=== PATIENT | female | born 1995 | race Caucasian/White ===

== ENCOUNTER → 2018-04-25 14:59 | Outpatient (CLI) | payer OTHER, SELFPAY ==
[2018-05-01 08:59] LABS: HPV APTIMA, High Risk Negative (Negative)
== END ==
PROVIDERS: Visit Provider Obstetrics & Gynecology
DX: Z12.4 Encounter for screening for malignant neoplasm of cervix (principal)
CPT/HCPCS: 88175; G0145

== ENCOUNTER → 2019-07-01 15:16 | Outpatient (CLI) | payer OTHER, SELFPAY ==
[2019-07-01 20:03] LABS: Chlamydia Trachomatis by PCR Negative (Negative); Neisserai gonorrhoeae by PCR Negative (Negative); Probe Check PASS; Sample Adequacy Control PASS; Specimen Processing Control PASS
== END ==
PROVIDERS: Visit Provider Advanced Practice Midwife
DX: Z11.3 Encounter for screening for infections with a predominantly sexual mode of transmission (principal)
CPT/HCPCS: 87491; 87591

== ENCOUNTER → 2019-07-14 14:34 | Outpatient (CLI) | payer OTHER, SELFPAY ==
[2019-07-14 16:00] LABS: Absolute Lymphocyte Count 2.14 X10^3/uL (0.83-4.51); Absolute Neutrophil Count 9.3 X10^3/uL (2.0-7.7); Basophil# 0.05 X10^3/uL; Basophil% 0.4 % (0-1); Eosinophils% 0.8 % (0-5); Hematocrit 42.2 % (37-47); Lymphocyte # 2.14 X10^3/ul (4.0); Lymphocyte % 17.5 % (19-41); Mean Corp Hgb Conc 33.2 g/dL (32-36); Mean Corpuscular Hgb 28.8 pg (27.0-32.0); Mean Corpuscular Volume 86.8 fL (81-99); Mean Platelet Vol. 9.4 fl (6.2-12.0); Monocyte# 0.59 X10^3/uL; Monocyte% 4.8 % (0-10); NRBC Flagged by Analyzer 0 % (0-5); Neutrophil # 9.27 X10^3/uL (2.7-7.7); Neutrophil % 76.1 % (47-70); Platelet Count 252 K/mm3 (150-450); RBC Distribution Width CV 13.4 % (11.6-14.6); RBC Distribution Width SD 42.5 fl (35.1-43.9); Red Blood Count 4.86 M/mm3 (4.2-5.4); White Blood Count 12.2 K/mm3 (4.4-11.0)
[2019-07-14 16:06] LABS: Amphetamine Urine VISTA NEGATIVE (<1000 ng/mL); Barbiturate Urine VISTA NEGATIVE (< 200 ng/mL); Benzodiazepine Urine VISTA NEGATIVE (< 200 ng/mL); Cocaine Urine VISTA NEGATIVE (< 300 ng/mL); Color, Urine Yellow (Yellow); Ecstacy Urine VISTA NEGATIVE (< 500 ng/mL); Glucose, Dipstick Normal (Normal); Ketone-Dipstick Negative (Negative); Leukocyte Esterase-Dipstick Negative /ul (Negative); Methadone Urine VISTA NEGATIVE (< 300 ng/mL); Nitrite-Dipstick Negative (Negative); Occult Blood-Urine Negative /ul (Negative); PCP Urine VISTA NEGATIVE (< 25 ng/mL); Protein-Dipstick Negative (Negative); THC Urine VISTA NEGATIVE (< 50 ng/mL); Urine Bilirubin Dipstick Negative (Negative); Urine Clarity Clear (Clear); Urine Urobilinogen Normal (Normal); Vista UDS pH Range 7
[2019-07-14 16:29] LABS: Thyroid Stim Hormone (TSH) 1.58 uIU/mL (0.358-3.74)
[2019-07-14 17:10] LABS: HIV - WCH Non-Reactive (Nonreactive); Hepatitis B Surface Antigen Non-Reactive (Nonreactive); Hepatitis C Antibody Non-Reactive (Nonreactive); Rubella IgG > 500.0 IU/mL
[2019-07-15 05:11] LABS: Prenatal RPR NONREACTIVE (NONREACTIVE)
== END ==
PROVIDERS: Visit Provider Obstetrics & Gynecology
DX: Z34.81 Encounter for supervision of other normal pregnancy, first trimester (principal)
CPT/HCPCS: 36415; 80307; 81002; 84443; 85025; 86703; 86762; 86803; 87340

== ENCOUNTER → 2019-11-26 | Outpatient (CLI) | payer OTHER, SELFPAY ==
[2019-11-26 17:46] LABS: Hematocrit 37.9 % (37-47); Hemoglobin 12.3 g/dL (12.0-15.0); Mean Corp Hgb Conc 32.5 g/dL (32-36); Mean Corpuscular Hgb 29.3 pg (27.0-32.0); Mean Corpuscular Volume 90.2 fL (81-99); Mean Platelet Vol. 9.3 fl (6.2-12.0); Platelet Count 208 K/mm3 (150-450); RBC Distribution Width CV 14.4 % (11.6-14.6); RBC Distribution Width SD 47.5 fl (35.1-43.9)
[2019-11-26 17:54] LABS: Glucose Challenge Gest 1H 50g 135 mg/dL (70-140)
== END | disposition home or self-care (01) ==
PROVIDERS: Referring Provider Obstetrics & Gynecology; Visit Provider Obstetrics & Gynecology
DX: Z34.83 Encounter for supervision of other normal pregnancy, third trimester (principal)
CPT/HCPCS: 82950; 85027

== ENCOUNTER → 2020-01-20 | Outpatient (CLI) | payer OTHER, SELFPAY | END | disposition home or self-care (01) | PROVIDERS: Referring Provider Obstetrics & Gynecology; Visit Provider Obstetrics & Gynecology | DX: Z36.85 Encounter for antenatal screening for Streptococcus B (principal) | CPT/HCPCS: 87081 ==

== ENCOUNTER → 2020-02-02 | Outpatient (CLI) | payer OTHER, SELFPAY | END | disposition home or self-care (01) | LOC: LABSPEC 12:22 | PROVIDERS: PCP Nurse Practitioner Family; Referring Provider Obstetrics & Gynecology; Visit Provider Obstetrics & Gynecology | DX: Z11.59 Encounter for screening for other viral diseases (principal) | CPT/HCPCS: 87635; U0003 ==

== ENCOUNTER → 2020-02-15 17:58 | Outpatient (CLI) | payer OTHER, SELFPAY | PROVIDERS: PCP Nurse Practitioner Family; Referring Provider Obstetrics & Gynecology; Visit Provider Obstetrics & Gynecology | DX: Z34.83 Encounter for supervision of other normal pregnancy, third trimester (principal); Z11.59 Encounter for screening for other viral diseases | CPT/HCPCS: 87635; G2023; U0003 ==

== ENCOUNTER 2020-02-22 09:55 | Inpatient (IN) | payer OTHER, SELFPAY ==
[2020-02-22] VITALS (44 sets, daily range): BP systolic 87–127; BP diastolic 48–77; PULSE 86–141; TEMP 36.6–37.8; O2SAT 91–100; BMI 33.8
[2020-02-22] MEDS: Lactated Ringers 1,000 ML 30 ML IV (09:25)
[2020-02-22] MEDS: proMETHazine 25 MG/ML Syringe 12.5 MG IM (09:35)
[2020-02-22] MEDS: morphine 10 MG/ML Syringe IM (09:35)
--- NOTE | 2020-02-22 09:57 | PCM.HP.BLA ---
History and Physical Date of Admission: 02/22/20 [facility] [place] - HISTORY AND PHYSICAL (02/22/2020) Name: MYA COLIN History of This : This is a 24-year-old G1, P0 who presents at 40 weeks 6 days gestation in active labor. care has been uneventful. OB Physician: ARIANE [place]'s Physician: UNDECIDED ...................................................................... : 1995 Age: 24 Address: [address] [place] [address] Phone: ([phone] Insurance Carrier: Well [id number] Emergency Contact: CESILIA COLIN [phone] ...................................................................... Final PEREZ: 02/16/20 By Ultrasound: 9 weeks 0 days PARITY: (G-Total Pregnancies P-Fullterm,Premature,Induced AB,Spont AB, Ectopics, Multiple,Living) PEREZ CONFIRMATION: By LMP: 05/12/19 Initial Exam: 02/16/20 By First Ultrasound Exam: 02/18/20 Final PEREZ: 02/16/20 OB PROBLEM LIST: Declines AFP and CF. Enc OFFICE Childbirth and Classes. ALLERGIES: No Known Allergies MEDICATIONS: oseltamivir 75 mg capsule One pill by mouth twice a day for 5 days 28 mg iron-800 mcg tablet daily SOCIAL HISTORY: Smoking - Never Alcohol Use - drinks occasionally not while Diet - moderate, balanced diet, caffeine < 2 drinks per day and Water intake tries for 2-3 liters. Lifestyle - Exercise - regular and Enc to walk 20 min daily. Employer - [employer] Job Description - packaging Illicit Drug Use - denies use of street drugs Sexual Activity - Residence - lives with Place of - [place] Hours Worked - 40 hours per week Spouse-Sig Other Name - Cesilia Spouse-Sig Other Occupation - [place] [employer]. FT programmer developer Berny Franklin Spouse-Sig Other Phone No - [phone] PRIOR DELIVERY HISTORY DEL DATE GEST LAB WT LB WT OZ TYPE ANES LABOR TX ANTEPARTUM FLOW CHART VISIT GE RTC FU F F MT U U DATE WK MD WKS HT PN HR M SS BP ED WT MT GL D EF ST __ ____ ___ __ __ ___ __ __ __ ___ __ __ __ ___ __ Feb JMW 1 38 V + + 112/72 sl 194 - - S Feb CH + 120/70 sl 194 - - 25 Messi 38 CH 1 40 V + + 118/60 sl 191 ne ne ft 25 hi 18 Jan 37 CH 1 36 V + + 118/66 0 190 - - 10 Jan 36 CH 1 35 V + + 122/60 sl 187 - - 05 January 34 CH 2 34 V + + 112/64 sl 183 - - 22 December 32 CH 2 31 V + + 110/64 sl 179 - - 30 Dec 09 CH 2 + / 166 16 Dec 07 CH 2 26 V + + 118/66 0 166 - tr Oct 01 JMW 4 20 + ? 104/68 0 162 - 1+ 06 Sep 29 KW 2 + ? 108/58 0 158 - - 09 Aug 25 KW 4 + + 100/70 0 152 - - 03 Jul 20 ELB 4 - - U+ O 110/72 0 152 ANTEPARTUM NOTE(S): Feb 17 2020: Good FM, Reactive NST Feb 11 2020: feeling well. Cervix check. Feb 04 2020: Jan 28 2020: feeling well. Lots of questions about labor! Jan 20 2020: feeling well. GBS and LARC today. Jan 06 2020: Dec 23 2019: feeling well. Dec 10 2019: feeling well Nov 26 2019: Oct 01 2020: see note, US OK Sep 17 2020: Aug 20 2019: feeling well. Stressful last 2 weeks with loss of father. Jul 14 2019: having some dizziness and low appetite. COMPREHENSIVE ANTEPARTUM NOTE(S): Feb 17 2020: Mya is here for her NST at 40 w 1 d. She states that she is tired, but okay. She states that the baby is not as active this morning, but in general she has noted good FM. She denies spotting/LoF. Notes occasional mild cramping. NST/EEFM explained. Feb 04 2020: Mya is here for PNV. FM good. Medications and Hx reviewed. She had COVID-19 test on 02/02/2020. She refused induction at this time. No complaints or concerns voiced to me. LJW Feb 04 2020: Had class over the weekend. Question about when to come in. To call if 5-1-1 rule and can determine over the phone usually. Reports +FM. FHR 142. SVE today /high soft anterior. To return in 1 week for routine PNV and had covid test already done Saturday. - CH Jan 28 2020: Reports +FM. FHR 135. Reviewed negative GBS. Feeling well with no signs of labor. Has class scheduled this Saturday and is excited. Will bring her carseat in to that class. Discussed with her being smaller she will need the shoulder straps at the lowest level. Doesn't think she will go into labor for a few weeks, but doesn't want induced. Will fax covid test order over and she will think about getting it next week. To return in 1 week for routine PNV. - Jan 22 2020: H taken to OB. tkg Jan 20 2020: Reports +FM. FHR 132. Feeling well with no concerns. Declines SVE today. GBS swab collected. To return in 1 week. - Jan 06 2020: Good FM. Reporting slight edema BL ankles -- wearing Dr. Rossi's compression stockings which seem to help. [facility] Jan 06 2020: Got in for class on January 14. Reports +FM. FHR today 138. Feeling well. Will review plan next visit after taking class. Discussed GBS swab and collection next visit with SVE if she wishes. To return in 2 weeks for routine PNV> - December 22 2020: (f*) Here today for a routine 32w PNV. Reports +FM. FHR today 146. Feeling well with no concerns. Went back to work last Saturday. Discussed in 2 weeks can do in person or telehealth appt. She would like to come in person. Reviewing [employer] classes and if not having any before delivery can do N[place] course online. Reviewed signs of labor and when to call. - Dec 10 2019: Telehealth appt today due to Covid-19. Discussed at last visit. Had labs and everything WNL. Reports +FM. Feeling well at home with no questions or concerns. Understands does not have to come in for next appt, but can in 2 weeks. At 36 weeks will start coming in weekly. Would like to come in for 32 week, but might do telehealth for 34 depending on Covid numbers. States her job is opening back up production Saturday, but she hasn't been called back yet. She doesn't mind going back when they need her because she plans on wearing a mask. Discussed efficacy of homemade masks not being great so to still take precautions. Reminded office is open 5 days a week with 24/7 line for emergencies. Understands when to call. TO come to office in 2 weeks for routine PNV - Nov 26 2019: 1 HR Glucose, CBC drawn today. Good FM. She is off work for COVID. kbm Nov 26 2019: (f*) Here today for 28-week labs and PNV. FHR today 146. Reports +FM. Discussed regular FM in 3rd trimester. If ever decreased needs to lay on left side, drink ice water, count 4 movements in 1 hour or 10 in 2. If not getting proper FM needs to call for surveillance. Covid-19 precautions discussed and has no concerns. May do telehealth appt in 2 weeks and will review Covid at that time. Appt in person in 4 weeks. Is losing insurance at the end of the month due to being off work and concerned. Understands still open 5 days a week with nurse triage line 24/7 so to call with questions or concerns. - Oct 01 2019: Mya is here for a PNV. She is feeling well with no complaints/edema. Starting to feel baby move possibly. Urine - 1+. MK Sep 17 2019: Declines genetics testing. She thinks she may have felt FM. Reviewed expected FM over next 4-6 wks. Sep 17 2019: Feeling well; denies cramping, UCs, VB, LOF; family coping relatively well after of her father; she requests information about [employer] groups, information and website given; having difficulty eating protein, mostly meat, discussed alternatives; discussed safety concerns , warning signs, s/s PTL; RTO 2 weeks for PNV, Comprehensive - W Aug 20 2019: Feeling well; denies cramping, VB, LOF; recently experieced the sudden, unexpected of her father; talked about family greiving, resources discussed ([facility]); discussed warning signs, when to call; RTO 4 weeks for PNV - KVW Jul 14 2019: Mya and Cesilia are here for NOB nurse visit with PEREZ 02-16-20 planning a vag del at [facility] w epidural, uncertain of ped for post disch care and to breastfeed. Mya is a G 1 P 0 who works FT at [employer]. 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 They are and excited about the baby. Mya has NKA to meds, food, latex or the environment. She's a lifetime non smoker, denies past or present street drug use and drinks alcohol occ but not once she realized the . Her diet is well balanced with 1-2 cups of coffee daily. Suggested one serving daily only. She drinks 2-3 liters of water daily. She is fairly active at work. Enc to walk 20 min daily. Genetics Screening form completed noting no family issues and they decline CF and AFP testing. Warning signs in pg discussed as well as OTC meds ok to take if needed, lifting restriction of 25#, wearing her seatbelt very low on her abdomen, reaching the office after hours and the importance of protein in her diet. They voice understanding. They have a copy of What to Expect. US done today and routine labs drawn. Office Childbirth and Classes discussed and encouraged and they are interested. FoodSafety.gov paper given and reviewed with them. Enc to call w any concerns. Visit took approx 45 min. Jesse AVILES. Jul 02 2019: GC and chlamydia NEG EB Jul 01 2019: Mya is being seen for missed menses. . UPT in office is positive. LMP 10-1-19. Periods average out to 45-50 day cycle. Pt is about 7 weeks and 1 day. PEREZ 7-7-20. Pt did take UPT 3 weeks ago at home and it was negative. Pt is having breast tenderness and occasional nausea. Last pap 2018 WNL, cultures done with urine today. Medications and allergies are up to date. information gone over with pt. AM Jul 01 2019: Mya is a 23yo here for missed menses appointment; sure LMP is 05/12/2019, making her 7w1d gestation today with 02/16/2020. She is and monogamous, feels safe in her relationship and environment; this is an unplanned but welcome . Patient had irregular periods Q 45-50 days with heavy bleeding lasting 5-7 days. She was on OCPs but stopped taking them over two years ago r/t side effects. Most recen tannual exam with pap and breast exam was in April 2018 and was WNL; no changes to medical, family or social history; she is a non smoker; She reports mild fatigue and mild intermitent nausea; UPT in office today positive; head to toe exam in office today WNL; pelvic and breast exam deferred per pt request, will discuss at next visti; urine GC/CT collected today; pt undecided about AFP and CF screening, and midwivery and/or CNM care, will discuss both at next visit; Literature reviewed, discussed goals and philosophy of midwifery care with physician backup, OTC medications for minor discomforts, diet and exercise recommendations, toxoplasmosis precautions and SAB precautions, schedule of visits, and continuoation with primary and dental care providers; will return for NOB visit w/US, bloodwork and PNV w/Dr. Connell in two weeks - KVW REVIEW OF SYSTEMS: GENERAL - Denies fever, or chills SKIN - Denies rash, new skin lesions, or change in moles EYES - Denies blurred vision, or change in visual acuity EARS - Denies ear pain, or difficulty hearing NOSE - Denies nasal congestion, discharge, or bleeding MOUTH - Denies sore throat, or difficulty swallowing NECK - Denies pain or swelling RESPIRATORY - Denies shortness of breath, cough, wheezing CARDIOVASCULAR - Denies palpitations, chest pain, orthopnea, PND, peripheral edema, syncope or claudication GASTROINTESTINAL - Denies nausea, vomiting, diarrhea, constipation, Denies abdominal pain, melena and or bright red blood GENITOURINARY - Denies dysuria, frequency of urination, urgency, or hesitancy MUSCULOSKELETAL - Denies joint or muscle pain, or back pain NEUROLOGICAL - Denies localized numbness, weakness, or tingling PSYCHIATRIC - Denies depression, anxiety, substance abuse or suicide attempts ENDOCRINE - Denies heat or cold intolerance, weight loss or gain, increasing thirst HEMATO-IMMUNOLOGIC - Denies easy bruising, bleeding, oral ulcerations or recurrent infections GENETICS SCREENING: Age 35+ years: No Thalassemia: No Neural Tube Defect: No Down Syndrome: No DAR-SACHS: No Sickle Cell Disease: No Hemophilia: No Musc. Dystrophy: No Cystic Fibrosis: No-declines screening [place] Chorea: No Mental Retardation: No Fragile X: No Other genetic: No Other defects: No SABs/still births: No Drugs since LMP: No INFECTION HISTORY: High risk AIDS: No High risk Hepatitis: No Exposed to TB: No Exposed to Herpes: No Rash/viral illness since LMP: No History of STD: No MENSTRUAL HISTORY: *Menses Amount/Duration: 6 daysMenses Regularity: IrregularFrequency: 2 months* PAST SUMMARY: PARITY: 1. Total Pregnancies............ 1 2. Full Term Pregnancies........ 0 3. Premature.................... 0 4. Abortions - Induced.......... 0 5. Abortions - Spontaneous...... 0 6. Ectopics..................... 0 7. Multiple Births.............. 0 8. Living Children.............. 0 PHYSICAL EXAMINATION General Appearence: 24 yo female in no acute distress Vital Signs: AF, VSS Heart: RRR without rubs or gallops Lungs: CTA x 2 Breasts: deferred Abdomen: gravid Pelvis: Cervix: 2/90 rupture membranes clear fluid Presentation: cephalic Station: -2 Fetus: Size: AGA Movement: present Heart: present Labs for : MYA COLIN since 05/22/2019 ORDER DATEIN DESCRIPTION VALUE UNITS RANGE A+ COMMENT CORONAVIRUS 19, ROSHAN SCREEN 02/15/20 NOTE Original Ordering Provider: SAW Adam COVID-19,ROSHAN Not Detected Not Detect This test was developed and its performance characteristics determined by [facility]. This test has not been FDA cleared or approved. This test has been authorized by FDA under an Emergency Use Authorization (EUA). This test is only authorized for the duration of time the declaration that circumstances exist justifying the authorization of the emergency use of in vitro diagnostic tests for detection of SARS-CoV-2 virus and/or diagnosis of COVID-19 infection under section 564(b)(1) of the Act, 21 U.S.C. 360bbb-3(b)(1), unless the authorization is terminated or revoked sooner. When diagnostic testing is negative, the possibility of a false negative result should be considered in the context of a patient's recent exposures and the presence of clinical signs and symptoms consistent with COVID-19. An individual without symptoms of COVID-19 and who is not shedding SARS-CoV-2 virus would expect to have a negative (not detected) result in this assay. TESTING PERFORMED AT [facility]. ORIGINAL REPORT ON FILE IN LAB CONTAINS ADDITIONAL TEST SITE INFORMATION. CORONAVIRUS 19, ROSHAN 02/02/20 NOTE Original Ordering Provider: SAW Adam COVID-19,ROSHAN Not Detected Not Detected Testing was performed using the Aptima SARS-CoV-2 assay. This test was developed and its performance characteristics determined by [facility]. This test has not been FDA cleared or approved. This test has been authorized by FDA under an Emergency Use Authorization (EUA). This test is only authorized for the duration of time the declaration that circumstances exist justifying the authorization of the emergency use of in vitro diagnostic tests for detection of SARS-CoV-2 virus and/or diagnosis of COVID-19 infection under section 564(b)(1) of the Act, 21 U.S.C. 360bbb-3(b)(1), unless the authorization is terminated or revoked sooner. When diagnostic testing is negative, the possibility of a false negative result should be considered in the context of a patient's recent exposures and the presence of clinical signs and symptoms consistent with COVID-19. An individual without symptoms of COVID-19 and who is not shedding SARS-CoV-2 virus would expect to have a negative (not detected) result in this assay. Performed at: = - [facility] [address] [place], [place] [id number] Parts Classifier: Naye Brown MD, Phone: [phone] Reviewed by ARIANE CULTURE, GROUP B STREPTOCOCCUS 01/20/20 NOTE Original Ordering Provider: SAW Adam DENIZ Culture Group B Beta Streptococcus is not isolated. Reviewed by ARIANE GLUCOSE CHALLENGE GEST 1H 50G 11/26/19 NOTE Original Ordering Provider: SAW Adam GLU GEST 50G 1H 135 mg/dL 70-140 Reviewed by OTF CBC-COMPLETE BLOOD CNT NO DIFF 11/26/19 NOTE Original Ordering Provider: SAW Adam WBC 13.0 K/mm3 4.4-11.0 H RBC 4.20 M/mm3 4.2-5.4 HGB 12.3 g/dL 12.0-15.0 HCT 37.9 % 37-47 MCV 90.2 fL 81-99 MCH 29.3 pg 27.0-32.0 MCHC 32.5 g/dL 32-36 RDW CV 14.4 % 11.6-14.6 RDW SD 47.5 fl 35.1-43.9 H PLT 208 K/mm3 150-450 MPV 9.3 fl 6.2-12.0 Reviewed by OTF RPR 07/14/19 NOTE Original Ordering Provider: Megan Connell RPR NONREACTIVE NONREACTIVE Reviewed by JOSÉ MIGUEL NEIL T AND S-NO CHARGE W/PNP 07/14/19 Reason for Type AND Screen/Red Cells: Surgery? [facility]~[address] [place], [address]~ BLOOD TYPE GEL O POSITIVE N AB SCREEN GEL NEGATIVE N Reviewed by JOSÉ MIGUEL HEPATITIS C ANTIBODY 07/14/19 NOTE Original Ordering Provider: Megan Connell HEPATITIS C AB Non-Reactive Nonreactive Non Reactive: < 0.8 Equivocal: >/= 0.8 to < 1.0 Reactive: >/= 1.0 The CDC recommends that a reactive/equivocal HCV antibody result be followed up by the HCV Nucleic Acid Amplification test (182058) Reviewed by JOSÉ MIGUEL HEPATITIS B SURFACE ANTIGEN 07/14/19 NOTE Original Ordering Provider: Megan Connell HEPB SURFACE AG Non-Reactive Nonreactive Reviewed by JOSÉ MIGUEL HIV - [facility] 07/14/19 NOTE Original Ordering Provider: Megan Connell HIV - [facility] Non-Reactive Nonreactive Reviewed by JOSÉ MIGUEL RUBELLA IGG 07/14/19 NOTE Original Ordering Provider: Megan Connell RUBELLA IGG > 500.0 IU/mL Antibody results Interpretation of Immune Status < 5 IU/ml Presumed Non-immune 5 - < 10 IU/ml Equivocal > or = 10 IU/ml Presumed Immune Reviewed by JOSÉ MIGUEL THYROID STIM HORMONE (TSH) 07/14/19 NOTE Original Ordering Provider: Megan Connell TSH 1.58 uIU/mL 0.358-3.74 Reviewed by JOSÉ MIGUEL URINALYSIS, ROUTINE (DIPSTICK) 07/14/19 NOTE Original Ordering Provider: Megan Connell COLOR Yellow Yellow CLARITY Clear Clear GLUCOSE, UR Normal mg/dl Normal BILIRUBIN URINE Negative mg/dL Negative KETONE UR Negative mg/dl Negative SP.GR. DIPSTX 1.010 1.002-1.030 PH UR 7.0 5.0 - 8.0 PROT DIPSTX Negative mg/dl Negative UROBILI Normal mg/dl Normal NITRITE UR Negative Negative OCCULT BLOOD-UR Negative /ul Negative LEUK ESTERASE Negative /ul Negative Reviewed by JOSÉ MIGUEL URINE DRUG SCREEN (VISTA) 07/14/19 NOTE Original Ordering Provider: Megan Connell TO BE CONFIRMED CONFIRMATORY TESTING FOR ALL POSITIVE URINE DRUG SCREEN RESULTS WILL ONLY BE SENT OUT UPON PHYSICIAN ORDER. VISTA Urine Drug Screen methods provide only preliminary analytical test results. A more specific alternate chemical method must be used in order to obtain a confirmed analytical result. Gas chromatography/mass spectrometery (GC/MS) is the preferred confirmatory method. Clinical consideration and professional judgement should be applied to any drug of abuse test result, particularly when preliminary positive results are used. URINE TCA TESTING MUST BE ORDERED SEPARATELY. USE TEST MNEMONIC: [facility]IST[facility] UDS PH 7 AMPHETAMINES NEGATIVE <1000 ng/mL BARBITIURATES NEGATIVE < 200 ng/mL BENZODIAZIPINE NEGATIVE < 200 ng/mL COCAINE NEGATIVE < 300 ng/mL ECSTACY NEGATIVE < 500 ng/mL METHADONE NEGATIVE < 300 ng/mL OPIATES NEGATIVE < 300 ng/mL PCP NEGATIVE < 25 ng/mL THC NEGATIVE < 50 ng/mL Reviewed by JOSÉ MIGUEL CBC W/DIFF, AUTOMATED 07/14/19 NOTE Original Ordering Provider: Megan Connell WBC 12.2 K/mm3 4.4-11.0 H RBC 4.86 M/mm3 4.2-5.4 HGB 14.0 g/dL 12.0-15.0 HCT 42.2 % 37-47 MCV 86.8 fL 81-99 MCH 28.8 pg 27.0-32.0 MCHC 33.2 g/dL 32-36 RDW CV 13.4 % 11.6-14.6 RDW SD 42.5 fl 35.1-43.9 PLT 252 K/mm3 150-450 MPV 9.4 fl 6.2-12.0 NEUT% 76.1 % 47-70 H LY% 17.5 % 19-41 L MONO% 4.8 % 0-10 EO% 0.8 % 0-5 BASO% 0.4 % 0-1 IM GRAN % 0.400 % 0.0-0.9 IG% - Immature Granulocytes (promyelocytes, myelocytes and metamyelocytes) > 1% indicates that a LEFT SHIFT is Present. ABSOLUTE NEUT 9.3 X10 3/uL 2.0-7.7 H ABSOLUTE LYMPH 2.14 X10 3/uL 0.83-4.51 NRBC, FLAGGED 0 % 0-5 Reviewed by JOSÉ MIGUEL JACKSON/JAQUELIN [facility] BY PCR 07/01/19 NOTE Original Ordering Provider: SAW DANIELSON [facility] PCR Negative Negative JAQUELIN BY PCR Negative Negative Reviewed by MEGAN Impression /Plan: 40 weeks 6-day intrauterine in active labor. Preparations in progress for delivery.
[2020-02-22 10:08] LABS: Absolute Lymphocyte Count 1.76 X10^3/uL (0.83-4.51); Basophil# 0.06 X10^3/uL; Basophil% 0.4 % (0-1); Eosinophil# 0.04 X10^3/uL; Eosinophils% 0.3 % (0-5); Hematocrit 38.9 % (37-47); Hemoglobin 12.6 g/dL (12.0-15.0); Lymphocyte # 1.76 X10^3/ul (4.0); Lymphocyte % 11.1 % (19-41); Mean Corp Hgb Conc 32.4 g/dL (32-36); Mean Corpuscular Hgb 29.2 pg (27.0-32.0); Mean Corpuscular Volume 90.3 fL (81-99); Mean Platelet Vol. 9.7 fl (6.2-12.0); Monocyte# 0.77 X10^3/uL; Monocyte% 4.9 % (0-10); NRBC Flagged by Analyzer 0 % (0-5); Neutrophil # 12.96 X10^3/uL (2.7-7.7); Platelet Count 200 K/mm3 (150-450); RBC Distribution Width CV 14.6 % (11.6-14.6); RBC Distribution Width SD 47.5 fl (35.1-43.9); Red Blood Count 4.31 M/mm3 (4.2-5.4); White Blood Count 15.8 K/mm3 (4.4-11.0)
[2020-02-22] MEDS: fentaNYL-bupivacaine (epidural) 100 ML BAG EPIDURAL ×3 (10:59→19:47)
[2020-02-22] MEDS: Oxytocin 30 units/NS 500 ml 30 UNITS/500 ML IV.SOLN IV (12:47)
[2020-02-22] MEDS: Lactated Ringers 500 ML 999 ML IV (12:48)
[2020-02-22] MEDS: Lactated Ringers 1,000 ML 50 ML IV (15:11)
[2020-02-22] MEDS: Acetaminophen 500 MG Tablet 1000 MG PO (17:14)
[2020-02-22] MEDS: Lactated Ringers 1,000 ML 200 ML IV (21:31)
[2020-02-23] VITALS (31 sets, daily range): BP systolic 100–130; BP diastolic 54–74; PULSE 70–134; RESP 14–20; TEMP 35.9–38.1; O2SAT 18–100
[2020-02-23] MEDS: fentaNYL-bupivacaine (epidural) 100 ML BAG EPIDURAL (00:37)
[2020-02-23] MEDS: Sodium Citrate/Citric Acid 30 ML UDC PO (03:27)
[2020-02-23] MEDS: Cefazolin 2 GM in 0.9% Normal Saline 100 ML IV (03:30)
--- NOTE | 2020-02-23 03:34 | PCM.OPRPT ---
Delivery Classification: ELEAZAR Final PEREZ: 02/16/20 Final PEREZ Source: US <20 weeks Gestational age: 41 Weeks and 2 Days doctor who attended delivery (if requested by OB): Lena Alexander - tachycardia Type of Anesthesia:: Epidural - With Duramorph Implants Used: None Date of Procedure: 02/23/20 Pre-Operative Diagnosis: Increasing Stress, Tachycardia, Failure to Progress Post-Operative Diagnosis: Increasing Stress, Tachycardia, Failure to Progress Indications for : Failed vaccuum extraction Description of Procedure: Surgeon: Jared Wilhelm MD, FACOG Anesthesia: Tone Andersen CRNA Procedure: Primary Low Transverse Cervical Caesarean Section Findings: Viable female infant with Apgars of 4/5/9/10 in occiput anterior presentation with thick meconium stained amniotic fluid and normal three-vessel placenta. Indication: This is a 24-year-old who presented to labor and delivery in active labor at 41 weeks gestation. She progressed to complete and pushing and tachycardia was noted. A single dose of Tylenol was sufficient to normalize maternal temperature to normal. Due to tachycardia and after approximately 2 hours of pushing, approximately 8-9 attempts were made with a vacuum with 3 low pressure pop offs to deliver the baby. Two different Kiwi vacuum were were used to attempt delivery the head without success. Given persistent tachycardia and exhaustion of the vacuum suction option it was decided proceed with primary section for increasing stress, failure to progress, and failed vacuum extraction. care has otherwise been uneventful. The patient has been counseled regarding the risk and indications of this procedure including the possibility of bleeding infection and injury to surrounding structures such as bowel bladder. All questions were answered. Procedure: Patient was taken to the operating room where after epidural anesthesia was redosed, the patient was prepped and draped in usual sterile fashion; a Alcala catheter had been previously placed. The abdomen was entered through a Pfannenstiel incision and peritoneum was entered bluntly. After developing a bladder flap on the lower uterine segment a low transverse incision was made on the uterus and head was easily delivered onto the operative field the nose mouth and oropharynx were bulb suctioned. Subsequently a viable female was born with Apgars of 4/5/9/10. The infant was noted to cry move all extremities on the operative field. The umbilical cord was doubly clamped and ligated and handed to the nursery personnel who were present for the delivery. Placenta was delivered and noted to be 3 vessels and normal. Uterus was exteriorized and remaining placental tissue was removed. The uterus was then closed in 2 layers first with running locked 0 Vicryl suture followed by a second imbricating layer with 0 Vicryl suture. 0 Vicryl suture was then used in a horizontal mattress interrupted fashion to affect final hemostasis of the uterine incision line. Normal fallopian tubes and ovaries were visualized and the uterus was returned to the pelvis. Hemostasis was noted and rectus abdominis muscles were reapproximated in the midline with interrupted Number 0 Vicryl suture in a horizontal mattress fashion. Fascia was closed with running Number 1 PDS Strata fix suture. Subcutaneous tissue was irrigated with copious amounts of saline solution and then closed with running 3-0 Vicryl suture. Skin was closed with 4-0 monocryl suture in a running subcuticular fashion. Steri strips and a Mepilex dressing were placed across the incision. The patient tolerated the procedure well and was taken to the recovery room in satisfactory condition. Sponge, needle, and instrument counts were all reportedly correct. EBL was 750 cc. Ancef 2 gms IV was given prior to the procedure. Complications: None Amniotic Fluid Description: Thick meconium Placenta Disposition: Sent to Pathology Specimen(s) sent to pathology: Placenta Drain: Alcala to straight drain Fluids Replaced: Crystalloid Cord Entanglement: None Cord Vessel Description: 3 Vessels Esitmated Blood Loss (ml): 750 cc Gender: Female (1 minute): 4 (5 minute): 5 Antibiotic Given: Ancef 2 grams IV x1 Pt instructed on risks of surgery: Bleeding, Infection, Injury to surrounding structure(s) including bowel and bladder - Admit VTE Documentation VTE Present on Admission: Yes VTE Mechan Device Prophylaxis: SCD's
[2020-02-23] MEDS: Methylergonovine 0.2 MG/ML Ampul IM (03:52)
--- NOTE | 2020-02-23 04:30 | DCINST_ITS ---
<Jared Wilhelm - Last Filed: 02/23/20 04:30> Discharge Diet: No Restrictions Discharge Activity: May not drive while taking narcotic pain medications., May Shower, May Take a Tub Bath May resume sexual activity in: 4-6 weeks Lifting Restrictions: 20 pounds Additional Activity Instructions:: Nothing in the vagina for 4-6 weeks. You may return to work/school in 6 weeks. Call your doctor if your incision/area has: Continuous Slow Oozing, Sudden Increased Bleeding, Increased Pain/ Swelling, Increased Redness, Foul Smelling Discharge Call your doctor if you observe: Fever of 101 or Higher, Inability to urinate, Inability to have a bowel movement, Using more than one pad per hour Additional Instructions: If you experience any of the following, contact your healthcare provider. * Bleeding that soaks a pad every hour for 2 hours * Fever 100.4 or higher * Unrelieved incision or abdominal pain * Swelling, redness, discharge or bleeding from your incision or episiotomy site * Your incision begins to separate * Problems urinating (including inability to urinate or burning while urinating). * Visual changes * Severe headache * Flu-like symptoms * Pain or redness in one of both of your breasts * Pain, warmth, tenderness or swelling in your legs, especially the calf area * Frequent nausea and vomiting * Symptoms of depression or anxiety If you experience any of the following, call 911 or go to the nearest Emergency Room. * Chest pain * Problems breathing * Seizure activity * Partial or complete paralysis of a body part, slurred speech, weakness or drooping of the face, or a sudden inability to walk or hold your balance Allergies/Adverse Reactions: Allergies No Known Allergies Allergy (Verified 02/22/20 05:59) Medications to take at Discharge Pnv No.103/Folic/Om3s/Fish Oil [ Gummies] 1 ea PO 02/22/20 Docusate Sodium [Colace] 100 mg PO BID PRN PRN #60 cap 02/23/20 Oxycodone [Oxyir] 5 mg PO Q6H PRN PRN 7 Days #20 tab 02/23/20 The following prescriptions were given: Docusate Sodium [Colace] 100 mg PO BID PRN PRN #60 cap PRN Reason: Constipation Transmission Status: Received by [facility] [place] [id number] Oxycodone [Oxyir] 5 mg PO Q6H PRN PRN 7 Days #20 tab PRN Reason: Pain Score 6-10/10 Transmission Status: Received by [facility]. Follow-Up: Call to make an appointment with your doctor for an incision check in 1-2 weeks. You will also need a 6 week post- follow up appointment. Test results from this visit will be discussed in further detail at your follow- up appointment, if applicable. Please Follow Up With: Jared Wilhelm MD - [phone] When: Call to make an appointment for an incision check in 2 weeks. Primary Care Physician: Nataly Mcrae NP-C [Primary Care Provider] - <Camila Adam - Last Filed: 02/24/20 08:36> Discharge Diet: No Restrictions Discharge Activity: May Not Drive - for 2 weeks or while taking narcotic pain meds., May Shower, May Take a Tub Bath - in 7 days. May resume sexual activity in: 4-6 weeks Lifting Restrictions: 20 pounds Additional Activity Instructions:: Nothing in the vagina for 4-6 weeks. You may return to work/school in 6 weeks. Call your doctor if your incision/area has: Continuous Slow Oozing, Sudden Increased Bleeding, Increased Pain/ Swelling, Increased Redness, Foul Smelling Discharge Call your doctor if you observe: Fever of 101 or Higher Suture Line Care: Avoid Pulling/Pushing, Avoid Pinching/Bending Additional Instructions: If you experience any of the following, contact your healthcare provider. * Bleeding that soaks a pad every hour for 2 hours * Fever 100.4 or higher * Unrelieved incision or abdominal pain * Swelling, redness, discharge or bleeding from your incision or episiotomy site * Your incision begins to separate * Problems urinating (including inability to urinate or burning while urinating). * Visual changes * Severe headache * Flu-like symptoms * Pain or redness in one of both of your breasts * Pain, warmth, tenderness or swelling in your legs, especially the calf area * Frequent nausea and vomiting * Symptoms of depression or anxiety If you experience any of the following, call 911 or go to the nearest Emergency Room. * Chest pain * Problems breathing * Seizure activity * Partial or complete paralysis of a body part, slurred speech, weakness or drooping of the face, or a sudden inability to walk or hold your balance Follow-Up: Call to make an appointment with your doctor for an incision check in 1-2 weeks. You will also need a 6 week post- follow up appointment. Test results from this visit will be discussed in further detail at your follow- up appointment, if applicable.
[2020-02-23] MEDS: Lactated Ringers 1,000 ML 200 ML IV (04:50)
[2020-02-23] MEDS: Oxytocin 30 units/NS 500 ml 30 UNITS/500 ML IV.SOLN 167 UNITS IV (04:52)
[2020-02-23] MEDS: Acetaminophen 500 MG Tablet 1000 MG PO ×3 (05:54→18:20)
[2020-02-23] MEDS: Lactated Ringers 1,000 ML 100 ML IV (07:58)
[2020-02-23] MEDS: Ketorolac 30 MG/ML Syringe IV ×3 (08:55→20:11)
[2020-02-23] MEDS: Senna/Docusate Sodium 1 Tablet PO (11:05)
[2020-02-23] MEDS: Cefazolin 1 GM/50 ML BAG IV ×2 (12:02→20:11)
[2020-02-24 00:14] VITALS: BP 106/58; PULSE 77; RESP 18; TEMP 36.3; O2SAT 97
[2020-02-24] MEDS: Acetaminophen 500 MG Tablet 1000 MG PO ×3 (00:16→11:07)
[2020-02-24] MEDS: Ketorolac 30 MG/ML Syringe IV (02:01)
[2020-02-24] MEDS: 0.9% Saline Lock 10 ML Syringe IV (02:01)
[2020-02-24 02:10] VITALS: PULSE 96; RESP 18; O2SAT 97
[2020-02-24 04:31] VITALS: BP 118/67; PULSE 88; RESP 20; TEMP 36.7; O2SAT 98
[2020-02-24 04:36] LABS: Hematocrit 31.2 % (37-47); Hemoglobin 10.1 g/dL (12.0-15.0); Mean Corp Hgb Conc 32.4 g/dL (32-36); Mean Corpuscular Hgb 29.9 pg (27.0-32.0); Mean Corpuscular Volume 92.3 fL (81-99); Mean Platelet Vol. 9.4 fl (6.2-12.0); Platelet Count 143 K/mm3 (150-450); RBC Distribution Width SD 49.9 fl (35.1-43.9); Red Blood Count 3.38 M/mm3 (4.2-5.4); White Blood Count 22.9 K/mm3 (4.4-11.0)
[2020-02-24 08:18] VITALS: BP 102/64; PULSE 82; RESP 14; TEMP 36.6
[2020-02-24] MEDS: Ibuprofen 600 MG Tablet PO (08:31)
[2020-02-24] MEDS: Senna/Docusate Sodium 1 Tablet PO (08:31)
--- NOTE | 2020-02-24 08:37 | PCM.PN.OB ---
Subjective: Feeling well. Denies pain or heavy bleeding. Mild cramping, but tolerating oral medication well. Would like to discharge home today to go be with daughter. Has been up ambulating in her room, urinating well, passing flatus. Objective: VSS. Fundus is firm, midline, u/1. Incision has one small drop of old drainage. - Physical Exam Vitals/I&O's: Vital Signs Temp Pulse Resp BP Pulse Ox 97.8 F 82 14 102/64 98 02/24/20 08:18 02/24/20 08:18 02/24/20 08:18 02/24/20 08:18 02/24/20 04:31 Oxygen Delivery Method Room Air Weight: 86.636 kg Body Mass Index (BMI) 33.8 Intake and Output for Last 24 Hours 02/22/20 02/23/20 02/24/20 23:59 23:59 23:59 Intake Total 2968.37 / 2968.37 3205.19 / 3205.19 Output Total 800 / 800 2300 / 2300 800 / 800 Balance 2168.37 / 2168.37 905.19 / 905.19 -800 / -800 General: Alert, Oriented x3, Cooperative HEENT: Atraumatic, PERRLA, EOMI, Normocephalic Neck: Supple, No JVD, Negative Carotid Bruits Lungs: Clear to auscultation, Normal air movement Cardiovascular: Regular rate, No murmurs Abdomen: Bowel Sounds Present, Soft, Non Tender Extremities: No edema, Capillary Refill Less than 3 Seconds Skin: No rashes, No breakdown Musculoskeletal: No Tenderness to Palpation of Joints or Extremities Neurological: Cranial nerves II-XII grossly intact Psych/Mental Status: Normal Affect, Appropriate Laboratory Results 02/24/20 04:29: WBC 22.9 H, RBC 3.38 L, Hgb 10.1 L, Hct 31.2 L, MCV 92.3, MCH 29.9, MCHC 32.4, RDW Std Deviation 49.9 H, RDW Coeff of Baudilio 15.0 H, Plt Count 143 L, MPV 9.4 Current Medications Acetaminophen (Tylenol) 1,000 mg PO Q6H ARMEN Last Admin: 02/24/20 06:46 Dose: 1,000 mg Documented by: Bisacodyl (Dulcolax) 10 mg RECTAL UD PRN PRN Reason: If no BM Hydrocortisone (Hytone) 1 applic TOPICAL TID PRN PRN; Protocol PRN Reason: Discomfort Naloxone HCl 4 mg/ Dextrose 504 mls @ 0 mls/hr IV .Q0M PRN; Protocol PRN Reason: Respiratory depression Ibuprofen (Motrin) 600 mg PO Q6H [facility] Last Admin: 02/24/20 08:31 Dose: 600 mg Documented by: Methylergonovine Maleate (Methergine) 0.2 mg IM X1 PRN PRN Reason: Uterine Atony Last Admin: 02/23/20 03:52 Dose: 0.2 mg Documented by: Naloxone HCl (Narcan) 0.02 mg IV Q1M PRN PRN Reason: RR <10 and pt unresponsive Ondansetron HCl (Zofran) 4 mg IV Q4H PRN PRN PRN Reason: Nausea Oxycodone HCl (Oxyir) 5 - 10 mg PO Q4H PRN PRN PRN Reason: Pain Score 4-10/10 Prochlorperazine Edisylate (Compazine Iv) 10 mg IV Q6H PRN PRN PRN Reason: NAUSEA Senna/Docusate Sodium (Senokot-S, Savita-Colace) 1 - 2 tablet PO DAILY [facility] Last Admin: 02/24/20 08:31 Dose: 2 tablet Documented by: Simethicone (Mylicon) 80 mg PO PCHS PRN PRN Reason: Indigestion/stomach pain Sodium Chloride () 5 - 15 ml IV UD PRN PRN Reason: SALINE FLUSH Last Admin: 02/24/20 02:01 Dose: 10 ml Documented by: Medical Necessity - Tobacco Use Smoking Status: Never smoker Assessment/Plan A/P: POD #1 S/P Primary Csection Normal involution and course , pumping well Surgical dressing to be removed in 1-2 days, instructed on steri strips remaining intact Discharge today with 2 week incision check and 6 week routine PP visit
== END 2020-02-24 11:55 | disposition home or self-care (01) | DRG 788 ==
LOC: WPOUT 10:01 → WP 10:01
PROVIDERS: Admitting Provider Obstetrics & Gynecology; PCP Nurse Practitioner Family; Visit Provider Obstetrics & Gynecology
DX: O48.0 Post-term pregnancy (principal); O66.5 Attempted application of vacuum extractor and forceps; O75.81 Maternal exhaustion complicating labor and delivery; O76 Abnormality in fetal heart rate and rhythm complicating labor and delivery; O77.0 Labor and delivery complicated by meconium in amniotic fluid; Z3A.41 41 weeks gestation of pregnancy; Z37.0 Single live birth
CPT/HCPCS: 59025; 59050; 85025; 85027; 86850; 86900; 86901; 99218; J7120; A4216; G0378; J2405